=== PATIENT | male | born 1965 | race Caucasian/White ===

== ENCOUNTER 2017-12-24 21:42 | Observation (INO) | payer OTHER ==
[~2017-12-24] VITALS: Ht 175.3 cm; Wt 56.7 kg
--- NOTE | 2017-12-24 21:59 | ED PSYCHIATRIC COMPLAINT ---
See Addendum History of Present Illness General Chief Complaint: ETOH/Drug Related Complaint Stated Complaint: ETOH WITHDRAWL Source: patient Exam Limitations: poor historian Vital Signs & Intake/Output Vital Signs & Intake/Output Vital Signs Date Time Temp Pulse Resp B/P B/P Pulse O2 O2 Flow FiO2 Mean Ox Delivery Rate 12/25 0800 97.6 66 18 137/84 12/25 0800 97.6 66 18 137/84 96 Room Air 12/25 0612 64 16 101/61 Room Air 12/25 0600 98.9 64 18 101/61 12/25 0400 99.1 60 16 125/60 12/25 0350 99.1 60 16 125/60 98 Room Air 12/25 0221 99.4 62 16 137/60 12/25 0221 99.4 62 18 137/60 98 Room Air 12/25 0125 98.7 86 18 137/68 12/25 0125 98.7 86 18 137/68 98 Room Air 12/25 0119 98.7 86 18 137/68 12/24 2329 99.0 86 16 159/96 97 Room Air 12/24 2328 99.0 86 18 159/96 12/24 2155 97.5 95 20 160/105 98 Allergies Coded Allergies: NO KNOWN ALLERGIES (03/02/15) Triage Nurses Notes Reviewed? yes Onset: Abrupt Duration: constant HPI: Patient is a 52-year-old male with a past medical history of alcohol dependency and abuse where he states that when he was younger he had a alcohol withdrawal seizure where he states that for the past 4-5 months she's been drinking heavily however the past 24 hours patient has had decreased by mouth intake of alcohol where he states that he woke up on the floor today and states that he is concerned of having episodes of blacking out or possible seizures where he is complaining of neck pain and right shoulder pain chest pain abdominal pain from waking up on many occasions today. Patient said "a few beers today". Patient does smoke marijuana denies any other illicit drugs. complaining of anxiety and nausea has had a few episodes of nonbloody nonbilious emesis (Randal SANTORO,Osmar) Reconcile Medications LORazepam (Ativan) 1 MG TAB 1 TAB PO TID PRN anxiety DAY 1: 2 TAB 3X/DAY DAY 2: 1 TAB 4X/DAY DAY 3: 1 TAB 3X/DAY DAY 4: 1 TAB 2X/DAY DAY 5: 1 TAB (Tracey MARLEY,Abdi Cardoso) Past History Medical History Any Pertinent Medical History? 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 No (Osmar Kay) Review of Systems Review of Systems Constitutional: Reports: no symptoms. EENTM: Reports: no symptoms. Respiratory: Reports: no symptoms. Cardiovascular: Reports: see HPI. GI: Reports: see HPI, abdominal pain. Genitourinary: Reports: no symptoms. Musculoskeletal: Reports: see HPI. Skin: Reports: no symptoms. Neurological/Psychological: Reports: no symptoms. Hematologic/Endocrine: Reports: no symptoms. Immunologic/Allergic: Reports: no symptoms. All Other Systems: Reviewed and Negative (Osmar Kay) Physical Exam Physical Exam General Appearance: intoxicated Head: atraumatic Eyes: Bilateral: normal appearance, PERRL, EOMI. 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 patient not suicidal (Osmar Kay) Progress Differential Diagnosis: drug intoxication, drug overdose, drug withdrawal, electrolyte abnormality, encephalitis, hypoglycemia, hypothyroidism, IC hem/mass /tumor, meningitis Plan of Care: Orders Procedure Date/time Status Regular Diet 12/26 B Active Discharge Patient 12/25 845 Active OXYGEN SETUP (GEN) 12/25 104 Active Saline Lock 12/[address] in observation 12/25 104 Active Patient Data 12/25 104 Active Vital Signs 12/25 104 Active Activity/Ambulation 12/25 104 Active LACTIC ACID 12/25 104 Complete Code Status 12/25 104 Active Patient Safety Monitor 12/24 2208 Active EKG 12/24 2208 Active CIWA 12/25 2207 Active PARTIAL THROMBOPLASTIN TIME 12/24 2204 Complete PROTHROMBIN TIME 12/24 2204 Complete LACTIC ACID 12/24 2204 Complete URINE DRUG SCREEN FOR ER ONLY 12/25 2203 Complete TROPONIN LEVEL 12/25 2203 Complete PROLACTIN 12/25 2203 Complete LIPASE 12/25 2203 Complete ETHANOL 12/25 2203 Complete COMPREHENSIVE METABOLIC PANEL 12/25 2203 Complete CREATINE PHOSPHOKINASE 12/25 2203 Complete CBC WITHOUT DIFFERENTIAL 12/25 2203 Complete Intake & Output 12/24 2199 Active Current Medications Sig/Angelica Start time Last Medication Dose Stop Time Status Admin Gabapentin 300 MG TID 12/25 09 AC (Neurontin) Clonidine 0.1 MG TID 12/26 119 AC 12/25 (Catapres) 124 Laboratory Tests 12/25/17 0116: Lactic Acid 2.8 H 12/24/17 2345: Urine Opiates Screen < 100, Methadone Screen < 40, Barbiturate Screen < 60, Ur Phencyclidine Scrn < 6.00, Amphetamines Screen < 100, U Benzodiazepines Scrn < 85, Urine Cocaine Screen < 50, Urine Cannabis Screen > 80.00 H 12/24/172200: Lactic Acid 3.1 H 12/24/172200: Anion Gap 19 H, Estimated GFR > 60, BUN/Creatinine Ratio 12.9, Glucose 94, Calcium 9.3, Total Bilirubin 0.5, AST 38, ALT 32, Alkaline Phosphatase 59, Creatine Kinase 205 H, Troponin I < 0.01, Total Protein 7.7, Albumin 4.9, Globulin 2.8, Albumin/Globulin Ratio 1.8, Lipase 194, Prolactin 11.0, PT 10.7, INR 0.98, APTT 29, CBC w Diff NO MAN DIFF REQ, RBC 4.45 L, MCV 95.7 H, MCH 32.0 H, MCHC 33.4, RDW 14.7 H, MPV 6.8 L, Gran % 46.0, Lymphocytes % 39.7, Monocytes % 12.8 H, Eosinophils % 0.7, Basophils % 0.8, Absolute Granulocytes 2.5, Absolute Lymphocytes 2.2, Absolute Monocytes 0.7 H, Absolute Eosinophils 0 , Absolute Basophils 0, Serum Alcohol 225.0 Patient on initial examination is noted to be intoxicated CT scan of head and cervical spine chest abdomen or unremarkable the cervical collar was removed safely PT WAS REQUESTING ETOH WITHDRAWAL EVALUATION DENIES SI/HI FIRST CIWA WAS 5 It is unknown at this time of patient's history for concerns of these episodes of not remembering the events that occurred today whether or not it was seizures or just significant intoxication. CT scan was resulted no acute findings, cervical collar was removed safely Patient will be evaluated overnight in the ER for concerns of a focal withdrawal discussed hand off with Dr. briseno Diagnostic Imaging: Viewed by Me: CT Scan. Radiology Impression: no acute abnormality, no fracture Hand-Off Endorsed To: Ulises La MD Endorsed Time: 101 Pending: other Comments: PATIENT: TOM MCKEON PRESENT AGE: 52 PATIENT ACCOUNT NO: [id number] : 63 LOCATION: ER ORDERING PHYSICIAN: Osmar SANTORO SERVICE DATE: 12/24/17 EXAM TYPE: CAT - CT ABD & PELVIS W/O IV CONTRAS; CT CHEST WO IV CONTRAST Addendum: Patient is complaining of right shoulder pain. Review of images shows no fracture of the right shoulder or left shoulder. The acromioclavicular joint and the glenohumeral joint are normal. The clavicles are normal. The patient was imaged with the arms at the side. There is no fracture of the visualized portions of the humerus, radius ulna carpal bones or digits. Ischium measuring marielena present in the left humerus Addendum Signed by: Hardik Lopez MD 12/24/17 6870 EXAMINATION: CT ABDOMEN AND PELVIS WITHOUT CONTRAST CLINICAL INFORMATION: PATIENT: TOM MCKEON PRESENT AGE: 52 PATIENT ACCOUNT NO: [id number] : 63 LOCATION: ER ORDERING PHYSICIAN: Osmar SANTORO SERVICE DATE: 12/24/17 EXAM TYPE: CAT - CT CERV SPINE WO IV CONTRAST; CT HEAD WO IV CONTRAST EXAMINATION: CT HEAD WITHOUT CONTRAST CT CERVICAL SPINE WITHOUT CONTRAST CLINICAL INFORMATION: Fall. COMPARISON: None. TECHNIQUE: Imaging was performed from the skull base to vertex without intravenous administration of contrast. In addition, helical noncontrast CT imaging was acquired through the cervical spine and source images were reviewed along with axial reconstructions and sagittal and coronal MPRs. DLP: 977.61 mGy-cm FINDINGS: HEAD: No intracranial mass, hemorrhage, or midline shift is visualized. The ventricles and sulci are age-appropriate. No extra-axial collections are identified. The paranasal sinuses and mastoid air cells are well aerated. CERVICAL SPINE: There is no evidence of acute cervical spine fracture. Vertebral bodies remain normal in height. Cervical vertebrae have normal alignment. There is multilevel degenerative spondylosis of the cervical spine with disc height narrowing and endplate spurs and facet joint arthrosis No pre- or paravertebral soft tissue abnormality is identified. Limited assessment of the lung apices is unremarkable. IMPRESSION: 1. No acute intracranial pathology. 2. No CT evidence of acute cervical spine fracture or traumatic subluxation DICTATED BY: Hardik Lopez MD DATE/TIME DICTATED:12/24/172254 MONUMENT MASON:LAURA PATIENT: TOM MCKEON PRESENT AGE: 52 PATIENT ACCOUNT NO: [id number] : 63 LOCATION: [facility] ORDERING PHYSICIAN: Osmar SANTORO SERVICE DATE: 12/24/17 EXAM TYPE: CAT - CT ABD & PELVIS W/O IV CONTRAS; CT CHEST WO IV CONTRAST EXAMINATION: CT ABDOMEN AND PELVIS WITHOUT CONTRAST CLINICAL INFORMATION: Fall. Chest pain. COMPARISON: None TECHNIQUE: Multidetector volumetric imaging was performed from the superior aspect of the liver through the pubic symphysis. Sagittal and coronal reformatted images were obtained on the technologist's workstation. DLP: 437.09 mGy-cm FINDINGS: LUNG BASES: The visualized lung bases are unremarkable. LIVER, GALLBLADDER, AND BILIARY TREE: The liver is normal in size, shape, and attenuation. No focal hepatic lesion or biliary ductal dilatation is present. The gallbladder is unremarkable with no evidence of radiopaque gallstones, gallbladder wall thickening, or obvious pericholecystic inflammatory changes. PANCREAS: Unremarkable. SPLEEN: Unremarkable. ADRENAL GLANDS: Unremarkable. KIDNEYS AND URETERS: The kidneys are normal in size, shape, and attenuation. No hydronephrosis, hydroureter, or calculi seen. No perinephric stranding. BLADDER: Unremarkable. GASTROINTESTINAL TRACT: The small and large bowel are unremarkable. The appendix is unremarkable. ABDOMINAL WALL: No significant hernia is appreciated. LYMPH NODES: Normal. VASCULAR: There are scattered vascular wall calcifications of the distal aorta and proximal iliac arteries without aneurysm. PELVIC VISCERA prostate measures 4.1 cm transverse. There are calcifications within the prostate.: Unremarkable. OSSEOUS STRUCTURES: Intramedullary marielena in the proximal left humerus. This suggests spondylosis spine multilevel disc height narrowing and endplate spurring of the vertebrae. No acute osseous abnormality. IMPRESSION: No acute abnormality of the chest abdomen or pelvis. DICTATED BY: Hardik Lopez MD DATE/TIME DICTATED:12/24/172299 MONUMENT MASON:LAURA DATE/TIME TRANSCRIBED:12/24/172299 (Osmar Kay) Hand-Off Endorsed To: Abdi Webb MD Endorsed Time: 07 Pending: consult (JADEN, case mgmt), other (Abhinav MARLEY,Ulises) Comments: 12/25/2017 8:46:08 AM patient does not meet criterion for inpatient detoxification according to the [facility] emergency medicine detoxification protocol. Patient is agreeable to outpatient management. (Abdi Webb MD) Departure Departure Condition: Guarded Referrals: Angella MARLEY,Sean Webb (PCP/Family) Departure Forms: Customer Survey General Discharge Information (Osmar Kay) Departure Disposition: HOME OR SELF CARE Clinical Impression Primary Impression: Alcohol abuse Secondary Impressions: Alcohol withdrawal Qualifiers: Complication of substance-induced condition: uncomplicated Qualified Code: F10.230 - Alcohol dependence with withdrawal, uncomplicated Additional Instructions: Avoid alcohol. Ativan as prescribed. Contact the [facility] and arrange for follow-up general medical evaluation as soon as possible. Return if any concerns or sudden worsening. If you do not currently have a primary care physician then please contact the [facility] at the following phone number: . Please note that there might be incidental findings in your evaluation that are unrelated to the current emergency department visit. Please notify your primary care doctor about this emergency department visit in order to obtain and review all of the testing performed so that these incidental findings can be monitored as needed. If you had an x-ray performed, please understand that some fractures may not be seen on the initial set of x-rays. If your symptoms persist you might need a repeat set of x-rays to check for such a fracture. If you had a laceration evaluated, please understand that foreign bodies such as glass or wood may not be visible to the naked eye or on plain x-rays. If the wound becomes red, swollen, increasingly more painful or if there is any drainage from the wound, please have it reevaluated by a physician for the possibility of a retained foreign body. If you're unable to follow up as outlined in the discharge instructions please return to the emergency department. Thank you for choosing the [facility] Emergency Department for your care. It was a pleasure to serve you today. Abdi Webb M.D. [facility] Prescriptions: Current Visit Scripts LORazepam (Ativan) 1 TAB PO TID PRN anxiety #16 TAB DAY 1: 2 TAB 3X/DAY DAY 2: 1 TAB 4X/DAY DAY 3: 1 TAB 3X/DAY DAY 4: 1 TAB 2X/DAY DAY 5: 1 TAB (Tracey MARLEY,Abdi Cardoso) ED Attending Observation Initial Observation Note: I have seen and personally examined TOM MCKEON on 12/25/17 at 0000 I agree with the current emergency department documentation. The disposition (admission or discharge) is uncertain at this time, he needs a period of observation for the following reason(s): Alcohol withdrawal scoring evaluation The ED Nurse caring for this patient has been personally informed as to what the patient is being observed for. (Ulises La MD) Observation Discharge: I have reevaluated TOM MCKEON on 12/25/17 at 0836. The patient is: ([X]): Stable for discharge (): To be admitted to Nursing Floor (): To be placed in Observation on Nursing Floor (): For transfer to other facility The patient was being observed for acute alcohol withdrawal and possible need for inpatient management As a result of that observation, I have determined patient is stable for outpatient management of his alcohol dependence and withdrawal. (Tracey MARLEY,Abdi Cardoso)
[2017-12-24 22:18] LABS: ABSOLUTE BASOPHIL COUNT 0 /CUMM (0.0-0.2); ABSOLUTE EOSINOPHIL COUNT 0 /CUMM (0.0-0.7); ABSOLUTE GRANULOCYTE CT 2.5 /CUMM (1.4-6.5); ABSOLUTE LYMPH COUNT 2.2 /CUMM (1.2-3.4); ABSOLUTE MONOCYTE COUNT 0.7 /CUMM (0.10-0.60); BASOPHIL % 0.8 % (0.0-2.0); EOSINOPHIL % 0.7 % (0-5); HEMATOCRIT 42.6 % (42-52); MEAN CORPUSCULAR HGB CONC 33.4 G/DL (33.0-37.0); MEAN CORPUSCULAR VOLUME 95.7 FL (80.0-94.0); MEAN PLATELET VOLUME 6.8 FL (7.4-10.4); PLATELET COUNT 270 /CUMM (130-400); RBC DISTRIBUTION WIDTH 14.7 % (11.5-14.5); RED BLOOD CELL CT 4.45 /CUMM (4.70-6.10); WHITE BLOOD CELL COUNT 5.5 /CUMM (4.8-10.8)
[2017-12-24 22:27] LABS: PT 10.7 SEC (9.4-12.5); PTT 29 SEC (25-37)
--- NOTE | 2017-12-24 23:03 | CT SCAN REPORT ---
EXAMINATION: CT HEAD WITHOUT CONTRAST CT CERVICAL SPINE WITHOUT CONTRAST CLINICAL INFORMATION: Fall. COMPARISON: None. TECHNIQUE: Imaging was performed from the skull base to vertex without intravenous administration of contrast. In addition, helical noncontrast CT imaging was acquired through the cervical spine and source images were reviewed along with axial reconstructions and sagittal and coronal MPRs. DLP: 977.61 mGy-cm FINDINGS: HEAD: No intracranial mass, hemorrhage, or midline shift is visualized. The ventricles and sulci are age-appropriate. No extra-axial collections are identified. The paranasal sinuses and mastoid air cells are well aerated. CERVICAL SPINE: There is no evidence of acute cervical spine fracture. Vertebral bodies remain normal in height. Cervical vertebrae have normal alignment. There is multilevel degenerative spondylosis of the cervical spine with disc height narrowing and endplate spurs and facet joint arthrosis No pre- or paravertebral soft tissue abnormality is identified. Limited assessment of the lung apices is unremarkable. IMPRESSION: 1. No acute intracranial pathology. 2. No CT evidence of acute cervical spine fracture or traumatic subluxation
--- NOTE | 2017-12-24 23:13 | CT SCAN REPORT ---
EXAMINATION: CT ABDOMEN AND PELVIS WITHOUT CONTRAST CLINICAL INFORMATION: Fall. Chest pain. COMPARISON: None TECHNIQUE: Multidetector volumetric imaging was performed from the superior aspect of the liver through the pubic symphysis. Sagittal and coronal reformatted images were obtained on the technologist's workstation. DLP: 437.09 mGy-cm FINDINGS: LUNG BASES: The visualized lung bases are unremarkable. LIVER, GALLBLADDER, AND BILIARY TREE: The liver is normal in size, shape, and attenuation. No focal hepatic lesion or biliary ductal dilatation is present. The gallbladder is unremarkable with no evidence of radiopaque gallstones, gallbladder wall thickening, or obvious pericholecystic inflammatory changes. PANCREAS: Unremarkable. SPLEEN: Unremarkable. ADRENAL GLANDS: Unremarkable. KIDNEYS AND URETERS: The kidneys are normal in size, shape, and attenuation. No hydronephrosis, hydroureter, or calculi seen. No perinephric stranding. BLADDER: Unremarkable. GASTROINTESTINAL TRACT: The small and large bowel are unremarkable. The appendix is unremarkable. ABDOMINAL WALL: No significant hernia is appreciated. LYMPH NODES: Normal. VASCULAR: There are scattered vascular wall calcifications of the distal aorta and proximal iliac arteries without aneurysm. PELVIC VISCERA prostate measures 4.1 cm transverse. There are calcifications within the prostate.: Unremarkable. OSSEOUS STRUCTURES: Intramedullary marielena in the proximal left humerus. This suggests spondylosis spine multilevel disc height narrowing and endplate spurring of the vertebrae. No acute osseous abnormality. IMPRESSION: No acute abnormality of the chest abdomen or pelvis.
[2017-12-24 23:28] VITALS: BP 159/96
[2017-12-25 01:19] VITALS: BP 137/68
[2017-12-25 02:21] VITALS: BP 137/60
[2017-12-25 04:00] VITALS: BP 125/60
[2017-12-25 06:00] VITALS: BP 101/61
[2017-12-25 08:00] VITALS: BP 137/84
[2017-12-25] MEDS ORDERED: ATIVAN1 M1 PO (08:44)
== END 2017-12-25 08:56 ==
LOC: ERH 21:42 → ERHI 12-25 01:05
PROVIDERS: Physician Assistant
DX: F10.230 Alcohol dependence with withdrawal, uncomplicated (principal); M54.9 Dorsalgia, unspecified; F12.90 Cannabis use, unspecified, uncomplicated; F41.9 Anxiety disorder, unspecified
CPT/HCPCS: 6090; 74176; 80307; 93005; 93010; 96374; 96375; G0378; G0480; J1885; J2405